=== PATIENT | male | born 1990 | race Caucasian/White ===

== ENCOUNTER 2018-10-21 13:16 | Emergency (ER) | payer SELFPAY ==
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
[2018-10-21] MEDS ORDERED: NICOTINE 21 MG/24 HR PATCH.TD24 TD ONE (13:57)
[2018-10-21 14:11] LABS: APPEARANCE,URINE CLEAR; BILIRUBIN,URINE NEGATIVE (NEGATIVE); COLOR,URINE COLORLESS; GLUCOSE, URINE NEGATIVE (NEGATIVE); KETONES,URINE NEGATIVE (NEGATIVE); LEUKOCYTE ESTERASE,URINE TRACE (NEGATIVE); NITRITE,URINE NEGATIVE (NEGATIVE); PROTEIN,URINE NEGATIVE (NEGATIVE); URINE SPECIFIC GRAVITY 1.002; UROBILINOGEN,URINE NEGATIVE mg/dL (<2.0)
[2018-10-21 14:17] LABS: URINE AMPHETAMINES SCREEN NEGATIVE; URINE BARBITURATES SCREEN NEGATIVE; URINE BENZODIAZEPINES SCREEN NEGATIVE; URINE COCAINE SCREEN NEGATIVE; URINE MARIJUANA (THC) SCREEN UNCONFIRMED POSITIVE; URINE METHADONE SCREEN NEGATIVE; URINE PHENCYCLIDINE SCREEN NEGATIVE
[2018-10-21 14:22] LABS: ABSOLUTE BASOPHILS # (AUTO) 0.1 10^3/uL (0.0-0.2); ABSOLUTE EOSINOPHILS # (AUTO) 0.1 10^3/uL (0.0-0.6); ABSOLUTE LYMPHOCYTES (AUTO) 2.4 10^3/uL (0.5-4.7); ABSOLUTE MONOCYTES (AUTO) 0.8 10^3/uL (0.1-1.4); BASOPHILS % (AUTO) 0.5 % (0-2); EOSINOPHILS % (AUTO) 1.3 % (0-6); HEMATOCRIT 50.3 % (37.9-51.0); HEMOGLOBIN 17.3 g/dL (13.5-17.0); LYMPHOCYTES % (AUTO) 20.9 % (13-45); MEAN CORPUSCULAR HEMOGLOBIN 32.8 pg (27.0-33.4); MEAN CORPUSCULAR HGB CONC 34.4 g/dL (32.0-36.0); MEAN CORPUSCULAR VOLUME 95 fl (80-97); MONOCYTES % (AUTO) 7.2 % (3-13); PLATELET COUNT 334 10^3/uL (150-450); RED BLOOD COUNT 5.28 10^6/uL (4.35-5.55); RED CELL DISTRIBUTION WIDTH 13.8 % (11.5-14.0); SEGMENTED NEUTROPHILS % (AUTO) 70.1 % (42-78); TOTAL CELLS COUNTED % (AUTO) 100 %; WHITE BLOOD COUNT 11.5 10^3/uL (4.0-10.5)
--- NOTE | 2018-10-21 14:31 | ER Document Report ---
ED Psych Disorder / Suicide - General Chief Complaint: Suicidal Ideation Stated Complaint: SUICIDAL IDEATION Time Seen by Provider: 10/21/18 13:39 Notes: Patient is here for mental health assessment. He says he is drunk and he lost his job and does not have anything to live for. Considering killing himself. Patient has a history of depression, bipolar disorder and PTSD. Feels depressed for quite a while. Says he has been drinking today and had a gun and called the police and tried to get them to kill him. Currently, patient does not have the money for any medications and so he is not on any medications. He is tried to get into [facility] in [place] and [place] but does not have the money required. TRAVEL OUTSIDE OF THE [place] IN LAST 30 DAYS: No - Related Data Allergies/Adverse Reactions: cocoa [Gooding] Allergy (Verified 09/15/14 20:43) Penicillins Allergy (Verified 09/15/14 20:43) Past Medical History - Social History Smoking Status: Current Every Day Smoker Chew tobacco use (# tins/day): No Frequency of alcohol use: Heavy Drug Abuse: Marijuana Family History: Reviewed & Not Pertinent Patient has suicidal ideation: Yes Patient has homicidal ideation: Yes Pulmonary Medical History: Reports: Hx Asthma Neurological Medical History: Reports: Hx Migraine GI Medical History: Reports: Hx Ulcer Psychiatric Medical History: Reports: Hx Anxiety, Hx Bipolar Disorder, Hx Depression, Hx Obsessive Compulsive Disorder, Hx Personality Disorder, Hx Schizophrenia - Immunizations Immunizations up to date: Yes Hx Diphtheria, Pertussis, Tetanus Vaccination: Yes Review of Systems - Review of Systems Notes: REVIEW OF SYSTEMS: CONSTITUTIONAL : Denies fever. EENT: Denies eye, ear, nose or mouth or throat pain or other symptoms. CARDIOVASCULAR: Denies chest pain. RESPIRATORY: Denies cough, chest congestion, or shortness of breath. GASTROINTESTINAL: Has intermittent abdominal pains, but denies nausea, vomiting , or diarrhea. Says he has a history of ulcers. GENITOURINARY: Denies difficulty or painful urinating, urinary frequency, blood in urine. MUSCULOSKELETAL: Denies back or neck pain. Denies joint pain or swelling. SKIN: Denies rash or skin lesions. NEUROLOGICAL: Denies LOC or altered mental status. Denies headache. Denies sensory loss or motor deficits. ALL OTHER SYSTEMS REVIEWED AND NEGATIVE. Physical Exam - Vital signs Vitals: Temp Pulse Resp BP Pulse Ox 97.9 F 65 16 134/72 H 97 10/21/18 13:23 10/21/18 13:23 10/21/18 13:23 10/21/18 13:23 10/21/18 13:23 Interpretation: Normal Notes: PHYSICAL EXAMINATION: GENERAL: Well-appearing, in no acute distress. Somewhat hostile and argumentative. HEAD: Atraumatic, normocephalic. EYES: Pupils equal round and reactive to light, extraocular movements intact. ENT: oropharynx clear without exudates. Moist mucous membranes. NECK: Normal range of motion, supple. LUNGS: Breath sounds clear and equal bilaterally. HEART: Regular rate and rhythm without murmurs. ABDOMEN: Soft, nontender except for minimal discomfort in the epigastrium. Definitely no guarding or rebound. No masses. BACK: No tenderness throughout entire back. EXTREMITIES: Normal range of motion without pain. NEUROLOGICAL: Normal speech, normal gait. Normal sensory, motor, and reflex exams. Awake, alert, and oriented x3. Cranial nerves normal. PSYCH: Normal mood, normal affect. SKIN: Warm, dry, no rashes. Course - Re-evaluation Re-evalutation: 10/21/18 16:35 Patient attempted to elope, running out of the ED, but quickly caught and returned to his bed where we have restrain him. Lab studies all essentially normal except for a blood alcohol of 120s 10/22/18 09:48 Morning rounds: Chart reviewed. Patient sleeping soundly at this time. He had to be restrained last evening. Patient's vital signs of all been normal. Labs showed a white count of 11,500 without an obvious source of infection. Alcohol level was 122. Drug screen positive for marijuana. Patient appears to be medically stable for transfer or discharge. Edi Wells MD - Vital Signs Vital signs: Temp Pulse Resp BP Pulse Ox 98.1 F 80 18 120/70 100 10/22/18 08:20 10/22/18 08:20 10/22/18 08:20 10/22/18 08:20 10/22/18 08:20 - Laboratory Result Diagrams: 10/21/18 14:00 10/21/18 14:00 Laboratory results interpreted by me: 10/21/18 10/21/18 10/21/18 13:35 14:00 14:00 WBC 11.5 H Hgb 17.3 H Sodium 149.2 H Chloride 108 H ALT 20 L Albumin 5.2 H Ur Leukocyte Esterase TRACE H Salicylates < 1.0 L Acetaminophen < 10 L - EKG Interpretation by Me EKG shows normal: Sinus rhythm Rate: Normal Rhythm: NSR Voltage: Consistant with LVH Discharge - Discharge Clinical Impression: Alcohol abuse, Depression Condition: Stable
[2018-10-21 14:49] LABS: ALANINE AMINOTRANSFERASE 20 U/L (21-72); ALBUMIN 5.2 g/dL (3.5-5.0); ALCOHOL 122 mg/dL (NONE DETECTED); ALKALINE PHOSPHATASE 81 U/L (38-126); ANION GAP 16 (5-19); ASPARTATE AMINO TRANSFERASE 19 U/L (17-59); BILIRUBIN,DIRECT 0.2 mg/dL (0.0-0.4); BILIRUBIN,TOTAL 0.3 mg/dL (0.2-1.3); BLOOD UREA NITROGEN 7 mg/dL (7-20); CARBON DIOXIDE 25 mmol/L (22-30); CHLORIDE 108 mmol/L (98-107); GLUCOSE 96 mg/dL (75-110); POTASSIUM 4.5 mmol/L (3.6-5.0); SODIUM 149.2 mmol/L (137-145); TOTAL PROTEIN 8.1 g/dL (6.3-8.2)
[2018-10-21 14:59] LABS: ACETAMINOPHEN < 10 ug/mL (10-30); SALICYLATE < 1.0 mg/dL (2.0-20.0)
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
[2018-10-21] MEDS: BENZTROPINE MESYLATE 1 MG TABLET PO SCH (18:26)
[2018-10-21] MEDS: CHLORPROMAZINE HCL 50 MG TABLET PO PRN ×2 (18:26→22:14)
--- NOTE | 2018-10-21 20:00 | RADIOLOGY REPORT (SQ) ---
EXAM DESCRIPTION: MRI HEAD WITHOUT COMPLETED DATE/TIME: 10/21/2018 7:50 pm REASON FOR STUDY: TIAs yesterday and today COMPARISON: CT dated 08/27/2010. TECHNIQUE: Multiplanar imaging includes non-contrasted T1, T2, FLAIR, and diffusion with ADC map seq uences. Images stored on PACS. LIMITATIONS: None. FINDINGS: ANATOMY: No anomalies. Normal vascular flow voids. Pituitary fossa normal. CSF SPACES: Normal in size and contour. No hemorrhage. CEREBRUM: Sulci and gyri normal in size and contour. Normal white matter signal on FLAIR imaging. No evidence of hemorrhage, mass, or extraaxial fluid collection. POSTERIOR FOSSA: No signal alteration. No hemorrhage. No edema, masses or mass effect. Internal chasity tory canals, cerebello-pontine angles, mastoids normal. DIFFUSION IMAGING: Negative for acute or sub-acute infarction. ORBITS: No masses. Globes normal. PARANASAL SINUSES: No fluid levels. Mucosa normal. OTHER: No other significant finding. IMPRESSION: NORMAL MRI OF THE BRAIN WITHOUT INTRAVENOUS GADOLINIUM CONTRAST. EVIDENCE OF ACUTE STROKE: NO. TECHNICAL DOCUMENTATION: JOB ID: [id number] [employer]- All Rights Reserved Reading location - IP/workstation name: [email or web address]
--- NOTE | 2018-10-21 20:55 | EKG REPORT ---
SEVERITY:- ABNORMAL ECG - SINUS RHYTHM RIGHT ATRIAL ABNORMALITY PROBABLE LEFT VENTRICULAR HYPERTROPHY ST ELEV, PROBABLE NORMAL EARLY REPOL PATTERN : Confirmed by: Aleah Braden MD 21-Oct-2018 20:54:54
[2018-10-22] MEDS: BENZTROPINE MESYLATE 1 MG TABLET PO SCH (09:43)
[2018-10-22] MEDS: CHLORPROMAZINE HCL 50 MG TABLET PO PRN (12:37)
--- NOTE | 2018-10-22 15:39 | PSYCHOLOGICAL NOTE ---
Psych Note - Psych Note Date seen by psych provider: 10/22/18 Time seen by psych provider: 09:00 Psych Note: Reason for Consult: suicidal ideation Check in conducted with patient Patient discloses that he just wants to go home. He confirms he does understand that involuntary commitment process. He reports frustration that it had to get to this point before he received the help because he had been asking for help for so long. Patient confirms that he will work with [facility] staff and wants to get better. Medication recommendations per [facility]'s contracted psychiatrist Dr.Akintayo MARTI are as follows Thorazine 50 mg every 6 hours PRN Cogentin 1 mg daily 311 (F32.9) unspecified depressive disorder Complicated bereavement Relapse of Alcohol after 5 years of sobriety Impression\plan: Patient is recommended to continue under IVC. Patient has been accepted to [facility]; transportation has been requested. Patient reports thoughts of wanting to kill himself to be with his son who in 2008. Patient was sober for 5 years however relapsed yesterday after multiple failed attempts in trying to get mental health assistance. Patient continues to endorse wanting to harm himself. Dr. Dominguez was consulted and the care management this patient; attending physicians in agreement with recommendations and disposition
[2018-10-22 16:02] VITALS: BP 119/56
== END 2018-10-22 16:28 ==
LOC: ER 13:16
DX: F32.9 Major depressive disorder, single episode, unspecified (principal); F10.120 Alcohol abuse with intoxication, uncomplicated; R45.851 Suicidal ideations; F17.200 Nicotine dependence, unspecified, uncomplicated; J45.909 Unspecified asthma, uncomplicated
CPT/HCPCS: 93005; 99285; 36415; 80307 ×4; 85025; 80053; 81001; 70551; 93010; J3490 ×2

== ENCOUNTER 2019-10-12 22:16 | Emergency (ER) | payer SELFPAY ==
[2019-10-12 22:56] LABS: ABSOLUTE BASOPHILS # (AUTO) 0.1 10^3/uL (0.0-0.2); ABSOLUTE EOSINOPHILS # (AUTO) 0.4 10^3/uL (0.0-0.6); ABSOLUTE MONOCYTES (AUTO) 1.7 10^3/uL (0.1-1.4); ABSOLUTE NEUT (AUTO) 11.2 10^3/uL (1.7-8.2); BASOPHILS % (AUTO) 0.6 % (0-2); EOSINOPHILS % (AUTO) 2.1 % (0-6); HEMATOCRIT 46.3 % (37.9-51.0); HEMOGLOBIN 16.2 g/dL (13.5-17.0); LYMPHOCYTES % (AUTO) 26.9 % (13-45); MEAN CORPUSCULAR HEMOGLOBIN 33.1 pg (27.0-33.4); MEAN CORPUSCULAR HGB CONC 34.9 g/dL (32.0-36.0); MEAN CORPUSCULAR VOLUME 95 fl (80-97); MONOCYTES % (AUTO) 9.4 % (3-13); PLATELET COUNT 487 10^3/uL (150-450); RED BLOOD COUNT 4.89 10^6/uL (4.35-5.55); RED CELL DISTRIBUTION WIDTH 13.3 % (11.5-14.0); TOTAL CELLS COUNTED % (AUTO) 100 %; WHITE BLOOD COUNT 18.4 10^3/uL (4.0-10.5)
[2019-10-12 23:02] LABS: ALBUMIN 4.6 g/dL (3.5-5.0); ALCOHOL 241 mg/dL (NONE DETECTED); ALKALINE PHOSPHATASE 96 U/L (38-126); ANION GAP 16 (5-19); ASPARTATE AMINO TRANSFERASE 23 U/L (17-59); BILIRUBIN,DIRECT 0.1 mg/dL (0.0-0.4); BILIRUBIN,TOTAL 0.3 mg/dL (0.2-1.3); BLOOD UREA NITROGEN 6 mg/dL (7-20); CALCIUM 9.5 mg/dL (8.4-10.2); CARBON DIOXIDE 25 mmol/L (22-30); CHLORIDE 106 mmol/L (98-107); GLUCOSE 112 mg/dL (75-110); POTASSIUM 3.6 mmol/L (3.6-5.0); TOTAL PROTEIN 7.8 g/dL (6.3-8.2)
[2019-10-12 23:04] LABS: ACETAMINOPHEN < 10 ug/mL (10-30); SALICYLATE < 1.0 mg/dL (2.0-20.0)
[2019-10-13 00:06] LABS: APPEARANCE,URINE CLEAR; BILIRUBIN,URINE NEGATIVE (NEGATIVE); COLOR,URINE STRAW; GLUCOSE, URINE NEGATIVE (NEGATIVE); KETONES,URINE NEGATIVE (NEGATIVE); LEUKOCYTE ESTERASE,URINE NEGATIVE (NEGATIVE); NITRITE,URINE NEGATIVE (NEGATIVE); PROTEIN,URINE NEGATIVE (NEGATIVE); URINE SPECIFIC GRAVITY 1.003; UROBILINOGEN,URINE NEGATIVE mg/dL (<2.0)
[2019-10-13 00:16] LABS: URINE AMPHETAMINES SCREEN NEGATIVE; URINE BARBITURATES SCREEN NEGATIVE; URINE BENZODIAZEPINES SCREEN NEGATIVE; URINE COCAINE SCREEN NEGATIVE; URINE MARIJUANA (THC) SCREEN NEGATIVE; URINE METHADONE SCREEN NEGATIVE; URINE PHENCYCLIDINE SCREEN NEGATIVE
[2019-10-13] MEDS ORDERED: ONDANSETRON HCL INJ/PF 4 MG/2 ML SDV IV ONE (01:06)
--- NOTE | 2019-10-13 03:16 | ER Document Report ---
ED General - General Chief Complaint: Suicidal Ideation Stated Complaint: SUICIDAL IDEATION Time Seen by Provider: 10/12/19 23:52 TRAVEL OUTSIDE OF THE [place] IN LAST 30 DAYS: No - HPI Notes: Patient is brought to the emergency department for evaluation by EMS. Entire history is garnered from them. In short, evidently there was a in the family. Patient was drinking heavily. He told multiple family members of a plan to kill himself. Police were called, the patient became belligerent. EMS were called. The patient had been handcuffed. When EMS discussed removing the handcuffs to bring him to the hospital, the patient stated that he was going to "start swinging." At this, the patient was administered ketamine 100 mg IM, and presented to the emergency department for evaluation. The patient can offer me no significant history at this time. - Related Data Allergies/Adverse Reactions: cocoa [Hopkins] Allergy (Verified 09/15/14 20:43) Penicillins Allergy (Verified 09/15/14 20:43) Past Medical History - General Information source: Emergency Med Personnel, [facility] Records - Social History Smoking Status: Current Every Day Smoker Frequency of alcohol use: Heavy Family History: Reviewed & Not Pertinent Patient has suicidal ideation: Yes Patient has homicidal ideation: No Pulmonary Medical History: Reports: Hx Asthma Neurological Medical History: Reports: Hx Migraine Renal/ Medical History: Denies: Hx Peritoneal Dialysis GI Medical History: Reports: Hx Ulcer Psychiatric Medical History: Reports: Hx Anxiety, Hx Bipolar Disorder, Hx Depression, Hx Obsessive Compulsive Disorder, Hx Personality Disorder, Hx Schizophrenia - Immunizations Immunizations up to date: Yes Hx Diphtheria, Pertussis, Tetanus Vaccination: Yes Review of Systems - Review of Systems -: Yes ROS unobtainable due to patient's medical condition - Patient intoxicated, under the influence of ketamine Physical Exam - Vital signs Vitals: Temp Pulse Resp BP Pulse Ox 97.2 F 84 18 142/86 H 97 10/12/19 22:26 10/12/19 22:26 10/12/19 22:26 10/12/19 22:26 10/12/19 22:26 - Notes Notes: This is a 29-year-old male, who smells strongly of alcohol. He is laying asleep in the bed. He is responsive to tactile stimulus, makes purposeful movements, moves all 4 extremity spontaneously. He smells strongly of alcohol. Head is normocephalic and appears atraumatic. Pupils are dilated at 6 to 8 mm, sluggish, consistent with ketamine use. Oral mucosa is moist. Heart is regular rhythm, lungs are clear station bilaterally. Abdomen is soft, appears nontender, with normal active bowel sounds. Skin is warm and dry. Course - Re-evaluation Re-evalutation: 10/13/19 03:17 Patient presents emergency department for evaluation. Laboratory vesication's were obtained as per IVC protocol. I cannot gain any significant medical history from the patient, nor thoroughly evaluate him for medical clearance. My suspicion is that he is medically cleared, outside of his alcohol intoxication. Given the history that I did have, as well as his level intoxication, I was inclined to sign IVC petitions, orders placed in the chart. Awaiting further evaluation when the patient is more sober for medical clearance and then psychosocial evaluation. - Vital Signs Vital signs: Temp Pulse Resp BP Pulse Ox 97.2 F 80 16 132/80 H 96 10/12/19 22:26 10/13/19 00:37 10/13/19 00:37 10/13/19 00:37 10/13/19 00:37 - Laboratory Result Diagrams: 10/12/19 22:35 10/12/19 22:35 Laboratory results interpreted by me: 10/12/19 10/12/19 10/12/19 22:35 22:35 22:50 WBC 18.4 H Plt Count 487 H Absolute Neuts (auto) 11.2 H Absolute Lymphs (auto) 5.0 H Absolute Monos (auto) 1.7 H Sodium 146.5 H BUN 6 L Glucose 112 H Urine Blood SMALL H Salicylates < 1.0 L Acetaminophen < 10 L - EKG Interpretation by Me Additional EKG results interpreted by me: 10/13/19 03:18 Sinus mechanism with rate of 95 bpm. Normal axis and intervals, no acute ST changes concerning for ischemia or infarction. Discharge - Discharge Clinical Impression: Suicidal ideation, Alcohol abuse Alcohol intoxication Qualifiers: Complication of substance-induced condition: uncomplicated Qualified Code(s): F10.920 - Alcohol use, unspecified with intoxication, uncomplicated Condition: Stable Disposition: OTHER
--- NOTE | 2019-10-13 03:59 | ER Document Report ---
Doctor's Note Notes: 10/13/19 03:57 Called to the bedside as patient is much more awake, trying to climb out of the bed. Patient unable to fully open his eyes, he continues to appear to be intoxicated. Patient reports "I just do not feel right". Likely secondary to administration of ketamine by EMS. Patient does report some chest pain however when patient questioned about the chest pain he states that he has chest pain all the time and this is nothing new. I did add on a troponin. His EKG was reviewed previously by Dr. Shannon and there was no acute abnormality on the EKG. Patient continues to attempt to climb out of the bed and requires continuous redirection, he is being placed in four-point restraints at this time so that he does not injure himself.
--- NOTE | 2019-10-13 11:44 | EKG REPORT ---
SEVERITY:- NORMAL ECG - SINUS RHYTHM : Confirmed by: Aleah Braden MD 13-Oct-2019 11:43:58
--- NOTE | 2019-10-13 13:13 | ER Document Report ---
Doctor's Note Notes: 10/13/19 13:10 PHYSICAL EXAMINATION: GENERAL: Well-appearing and in no acute distress. HEAD: Atraumatic, normocephalic. EYES: sclera anicteric, conjunctiva are normal. ENT: nares patent. Moist mucous membranes. NECK: Normal range of motion, supple without lymphadenopathy LUNGS: CTAB and equal. No wheezes rales or rhonchi. HEART: Regular rate and rhythm without murmurs ABDOMEN: Soft, nontender, normal bowel sounds, no guarding. EXTREMITIES: Normal range of motion, no pitting edema. No cyanosis. BACK: No midline tenderness, no step-off or deformity. No CVA tenderness NEUROLOGICAL: Cranial nerves grossly intact. Normal speech. Normal gait. PSYCH: Normal mood, normal affect. SKIN: Warm, Dry, normal turgor, no rashes or lesions noted Patient resting quietly in room without complaint at this time. Patient is requesting to be discharged home. Patient states that he does have a history of anxiety, depression, bipolar disorder, schizophrenia and PTSD and has not been on any medications for 2 months. Patient appears clinically sober at this time. Patient is medically stable for discharge or transfer pending mental health evaluation. 10/13/19 18:19 Mental health team feels that patient is stable for discharge and does not meet IVC criteria at this time. Dr. Ray has evaluated patient and feels that patient can be discharged home at this time. Dr. Ray has rescinded the IVC order
--- NOTE | 2019-10-13 16:51 | PSYCHOLOGICAL NOTE ---
Psych Note - Psych Note Date seen by psych provider: 10/13/19 Time seen by psych provider: 09:40 Psych Note: Impression\plan: Patient is recommended for rescind of IVC and is cleared from acute psychiatric services. Patient has history of alcohol abuse. Dr. Dominguez was consulted to care management of this patient; attending physicians in agreement with recommendations and disposition.
[2019-10-13 20:14] VITALS: BP 128/78
== END 2019-10-13 19:50 | disposition home or self-care (01) ==
LOC: ER 22:16
DX: R45.851 Suicidal ideations (principal); F10.920 Alcohol use, unspecified with intoxication, uncomplicated; F17.200 Nicotine dependence, unspecified, uncomplicated; Z88.0 Allergy status to penicillin
CPT/HCPCS: 93005; 36415; 80307 ×4; 85025; 80053; 81001; 84484; 93010; J2405; 96374; 99285